=== PATIENT | male | born 1955 | race Caucasian/White ===

== ENCOUNTER 2017-12-09 01:03 | Emergency (ER) | payer MEDICAID, OTHER ==
--- NOTE | 2017-12-09 02:11 | EDM.PDOC ---
ED HPI GENERAL MEDICAL PROBLEM - General Chief Complaint: Flank Pain Stated Complaint: BACK PAIN Time Seen by Provider: 12/09/17 02:09 Source of Information: Reports: Patient History Limitations: Reports: No Limitations - History of Present Illness INITIAL COMMENTS - FREE TEXT/NARRATIVE: pt woke up with a sudden onset of severe left flank pain. He had noted blood in his urine yesterday when he had his first void of the day. Onset: Today, Sudden, Other ( started about midnight. ) Duration: Hour(s): Location: Reports: Abdomen, Other (rt flank) Associated Symptoms: Reports: Other (hematuria. ) denies Pain Score (Numeric/FACES): 0 - Related Data Allergies Allergy/AdvReac Type Severity Reaction Status Date / Time No Known Allergies Allergy Verified 12/09/17 01:58 Home Meds: Home Meds NK [No Known Home Meds] 12/09/17 [History] Past Medical History HEENT History: Reports: Impaired Vision Respiratory History: Reports: Other (See Below) Other Respiratory History: emphesema Genitourinary History: Reports: Prostate Disorder Musculoskeletal History: Reports: Arthritis, Fracture Oncologic (Cancer) History: Reports: Prostate - Infectious Disease History Infectious Disease History: Reports: Chicken Pox - Past Surgical History Male Surgical History: Reports: Prostatectomy Other Male Surgeries/Procedures: prostate CA Dermatological Surgical History: Reports: Other (See Below) Social & Family History - Tobacco Use Smoking Status *Q: Current Every Day Smoker Years of Tobacco use: 40 Packs/Tins Daily: 1 Used Tobacco, but Quit: No Second Hand Smoke Exposure: Yes - Caffeine Use Caffeine Use: Reports: Soda - Recreational Drug Use Recreational Drug Use: Yes Recreational Drug Type: Reports: Marijuana/Hashish Recreational Drug Use Frequency: Daily ED ROS GENERAL - Review of Systems Review Of Systems: See Below Constitutional: Reports: No Symptoms HEENT: Reports: No Symptoms Respiratory: Reports: No Symptoms Cardiovascular: Reports: No Symptoms Endocrine: Reports: No Symptoms GI/Abdominal: Reports: Abdominal Pain, Other ( Pt has severe rt flank pain. This started at 12 midnight and it stopped just shortly prior to arrival at the hosp. He has no past history of kidney stones. ) : Reports: Flank Pain ED EXAM, GI/ABD - Physical Exam Exam: See Below Text/Narrative:: pt has no residual pain at this time. He Had very severe pain at home in his left flank. Exam Limited By: No Limitations General Appearance: Alert, No Apparent Distress, Other ( Pt was very uncomfortable earlier. ) Ears: Normal TMs Nose: Normal Inspection Throat/Mouth: Normal Inspection Head: Atraumatic Neck: Normal Inspection Respiratory/Chest: No Respiratory Distress Cardiovascular: Regular Rate, Rhythm GI/Abdominal Exam: Soft, Non-Tender (Male) Exam: Deferred Rectal (Males) Exam: Deferred Back Exam: Normal Inspection Extremities: Normal Inspection Neurological: Alert, Oriented, Normal Cognition Course - Vital Signs Last Recorded V/S: Last Vital Signs Temp 36.9 C 12/09/17 02:08 Pulse 66 12/09/17 02:08 Resp 16 12/09/17 02:08 BP 118/58 L 12/09/17 02:08 Pulse Ox 98 12/09/17 02:08 - Orders/Labs/Meds Orders: Active Orders 24 hr Category Date Time Status COMPREHENSIVE METABOLIC PN,CMP [CHEM] Urgent Lab 12/09/17 02:13 Received UA W/MICROSCOPIC [URIN] Urgent Lab 12/09/17 02:05 Ordered Labs: Laboratory Tests 12/09/17 12/09/17 Range/Units 02:02 02:05 WBC 9.7 (4.5-11.0) K/uL RBC 4.42 (4.30-5.90) M/uL Hgb 14.0 (12.0-15.0) g/dL Hct 41.8 (40.0-54.0) % MCV 95 (80-98) fL MCH 32 H (27-31) pg MCHC 34 (32-36) % Plt Count 207 (150-400) K/uL Neut % (Auto) 67 H (36-66) % Lymph % (Auto) 22 L (24-44) % [place] % (Auto) 8 H (2-6) % Eos % (Auto) 3 (2-4) % Baso % (Auto) 1 (0-1) % Urine Color Brown Urine Appearance Turbid Urine pH 6.5 (4.5-8.0) Ur Specific [place] 1.015 (1.008-1.030) Urine Protein 30 H (NEGATIVE) mg/dL Urine Glucose (UA) Normal (NEGATIVE) mg/dL Urine Ketones Negative (NEGATIVE) mg/dL Urine Occult Blood Large (NEGATIVE) Urine Nitrite Negative (NEGAITVE) Urine Bilirubin Negative (NEGATIVE) Urine Urobilinogen 1 (NORMAL) mg/dL Ur Leukocyte Esterase Negative (NEGATIVE) Urine RBC 75-100 H (0-5) Urine WBC 0-5 (0-5) Ur Epithelial Cells Not seen Amorphous Sediment Not seen Urine Bacteria Not seen Urine Mucus Not seen - Re-Assessments/Exams Free Text/Narrative Re-Assessment/Exam: 12/09/17 02:20 urine reveals 75-100 rbcs. . no bacteria Pt is completely painfree. Departure - Departure Time of Disposition: 02:21 Disposition: Home, Self-Care 01 Condition: Fair Clinical Impression: Ureteral calculi, Hematuria, Prostate cancer - Discharge Information Referrals: PCP,None [Primary Care Provider] - Forms: ED Department Discharge Care Plan Goals: push fluids, recheck urine in 10 days to be sure he does not have persistent hematuria. Rtc if pain reoccurs. - My Orders Last 24 Hours: My Active Orders 12/09/17 02:05 UA W/MICROSCOPIC [URIN] Urgent 12/09/17 02:13 COMPREHENSIVE METABOLIC PN,CMP [CHEM] Urgent - Assessment/Plan Last 24 Hours: My Active Orders 12/09/17 02:05 UA W/MICROSCOPIC [URIN] Urgent 12/09/17 02:13 COMPREHENSIVE METABOLIC PN,CMP [CHEM] Urgent
== END 2017-12-09 02:28 | disposition home or self-care (01) ==
LOC: JP.ED 01:03
DX: C61 Malignant neoplasm of prostate (principal); N20.1 Calculus of ureter; F17.210 Nicotine dependence, cigarettes, uncomplicated
CPT/HCPCS: 36415; 80053; 81001; 85025; 99284